=== PATIENT | male | born 1955 | race Caucasian/White ===

== ENCOUNTER 2024-02-11 08:11 | Outpatient (CLI) | payer BC ==
[2024-02-11] MEDS ORDERED: Iopamidol 370 76% 100 ML VIAL ONE (12:31)
== END 2024-02-11 08:12 | disposition home or self-care (01) ==
LOC: CSHCT 08:11
PROVIDERS: ATTEND Internal Medicine Cardiovascular Disease
DX: I77.810 Thoracic aortic ectasia (principal); I77.811 Abdominal aortic ectasia; E27.8 Other specified disorders of adrenal gland; N28.1 Cyst of kidney, acquired
CPT/HCPCS: 71275; 82565; Q9967

== ENCOUNTER 2025-09-20 08:24 | Outpatient (CLI) | payer MEDICARE, BC ==
[2025-09-20 09:47] LABS: Estimated GFR - POC 53.0
[2025-09-20] MEDS ORDERED: Iopamidol 300 61% 100 ML VIAL FS ONE (11:05)
== END 2025-09-20 08:25 | disposition home or self-care (01) ==
LOC: CSHCT 08:24
PROVIDERS: ATTEND Internal Medicine Cardiovascular Disease
DX: I71.20 Thoracic aortic aneurysm, without rupture, unspecified (principal); Z98.890 Other specified postprocedural states; I70.0 Atherosclerosis of aorta; E04.1 Nontoxic single thyroid nodule; D35.02 Benign neoplasm of left adrenal gland; N28.1 Cyst of kidney, acquired
CPT/HCPCS: 36415; 71275; 82565; Q9967